=== PATIENT | female | born 1950 | race Caucasian/White ===

== ENCOUNTER 2017-05-23 19:52 | Inpatient (IN) | payer MEDICARE ==
[~2017-05-23] VITALS: Ht 157.5 cm; Wt 89.8 kg
[2017-05-23] MEDS ORDERED: ATOR80TA PO (20:01)
[2017-05-23] MEDS ORDERED: MIRA50TA PO (20:01)
[2017-05-23] MEDS ORDERED: ARIP10TA9 PO (20:01)
[2017-05-23] MEDS ORDERED: LEVO88TA5 PO (20:01)
[2017-05-23] MEDS ORDERED: MAGN400O6 PO (20:01)
[2017-05-23] MEDS ORDERED: MAGN30OR PO (20:01)
[2017-05-23] MEDS ORDERED: EZET10TA13 PO (20:01)
[2017-05-23] MEDS ORDERED: IBUP-1955 PO (20:01)
[2017-05-23] MEDS ORDERED: TRAZ-144 PO (20:01)
[2017-05-23] MEDS ORDERED: MAG HYDROX/AL HYDROX/SIMETH 30 ML LIQUID UDC PO PRN (21:15)
[2017-05-23] MEDS ORDERED: ZOLPIDEM 5 MG TABLET PO PRN (21:15)
[2017-05-23 22:36] VITALS: BP 138/91
[2017-05-23] MEDS ORDERED: ZOLPIDEM 5 MG TABLET ONE (23:02)
[2017-05-24 00:36] LABS: *BILIRUBIN,URIN NEGATIVE (NEGATIVE); *BLOOD, URINE NEGATIVE (NEGATIVE); *CLARITY,URINE CLEAR (CLEAR); *COLOR,URINE YELLOW (YELLOW); *KETONES,URINE NEGATIVE (NEGATIVE); *PROTEIN,URINE NEGATIVE (NEGATIVE); *UROBILINOGEN,URINE 0.2 E.U./dl (NORMAL); LEUKOCYTE ESTERASE ,URINE NEGATIVE (NEGATIVE); NITRITE, URINE NEGATIVE (NEGATIVE); UGLUCOSE NEGATIVE (NEGATIVE)
[2017-05-24 01:06] LABS: RBC,URINE 0-3 /HPF (0-3)
[2017-05-24 01:07] LABS: BACTERIA,URINE FEW /HPF (NONE SEEN); SQUAMOUS EPITHELIAL CELL,UR MODERATE /HPF (NONE SEEN); WBC,URINE 0-3 /HPF (0-3)
[2017-05-24 01:13] VITALS: BP 138/91
[2017-05-24 07:30] VITALS: BP 136/82
[2017-05-24] MEDS ORDERED: INFLUENZA VACCINE 2017-2018 0.5 ML DISP.SYRIN IM ONE (10:00)
[2017-05-24 16:00] VITALS: BP 132/74
[2017-05-24] MEDS: ARIPIPRAZOLE 5 MG TABLET PO SCH (16:54)
[2017-05-24] MEDS: MAGNESIUM HYDROXIDE 30 ML LIQUID UDC PO PRN (16:54)
[2017-05-24] MEDS: IBUPROFEN 600 MG TABLET PO PRN (17:33)
[2017-05-24] MEDS: ATORVASTATIN 40 MG TABLET PO SCH (20:05)
[2017-05-24 20:15] VITALS: BP 116/74
[2017-05-24] MEDS ORDERED: Medication Not On Formulary EA (Atorvastatin Calcium (Lipitor) 80 MG) PO SCH (21:00)
[2017-05-24] MEDS: TRAZODONE 100 MG TABLET PO PRN (22:36)
[2017-05-25 07:24] LABS: BASOPHILS % (AUTO) 0.3 % (0.0-2.0); EOSINOPHILS # (AUTO) 0.2 K/uL (0.0-0.7); EOSINOPHILS % (AUTO) 1.8 % (0.0-7.0); HEMATOCRIT 44.3 % (31.2-41.9); HEMOGLOBIN 15.3 g/dL (10.9-14.3); LYMPHOCYTES # (AUTO) 3.8 K/uL (20.0-40.0); LYMPHOCYTES % (AUTO) 41.1 % (20.5-51.5); MEAN CORPUSCULAR HEMOGLOBIN 28.5 uug (24.7-32.8); MEAN CORPUSCULAR HGB CONC 35 g/dL (32.3-35.6); MEAN CORPUSCULAR VOLUME 82.6 fL (75.5-95.3); MONOCYTES # (AUTO) 0.6 K/uL (2.0-10.0); MONOCYTES % (AUTO) 6.6 % (0.0-11.0); NEUTROPHILS # (AUTO) 4.7 K/uL (1.8-8.9); NEUTROPHILS % (AUTO) 50.2 % (38.5-71.5); PLATELET COUNT (AUTO) 278 K/uL (179-408); RED BLOOD CELL COUNT(AUTO) 5.37 MIL/uL (3.63-4.92); WHITE BLOOD COUNT (AUTO) 9.3 K/uL (3.8-11.8)
[2017-05-25 07:30] VITALS: BP 132/82
[2017-05-25 07:39] LABS: BILIRUBIN,TOTAL 0.5 mg/dL (0.2-1.0); MAGNESIUM 1.9 mg/dL (1.8-2.4); PHOSPHOROUS 3.4 mg/dL (2.5-4.9); POTASSIUM 3.7 mmol/L (3.5-5.1); TOTAL PROTEIN, SERUM 7.2 g/dL (6.4-8.2)
[2017-05-25 07:44] LABS: THYROID STIMULATING HORMONE 3.846 mIU/mL (0.358-3.740)
[2017-05-25] MEDS: LEVOTHYROXINE SODIUM 88 MCG TABLET PO SCH (07:52)
[2017-05-25] MEDS: ESCITALOPRAM OXALATE 10 MG TABLET PO SCH (08:13)
[2017-05-25] MEDS: ARIPIPRAZOLE 5 MG TABLET PO SCH ×2 (08:14→16:28)
[2017-05-25] MEDS ORDERED: Medication Not On Formulary EA (Mirabegron (Myrbetriq) 50 MG) PO SCH (09:00)
[2017-05-25] MEDS: MAGNESIUM HYDROXIDE 30 ML LIQUID UDC PO PRN (14:44)
[2017-05-25 15:45] VITALS: BP 140/87
[2017-05-25] MEDS: IBUPROFEN 600 MG TABLET PO PRN (16:27)
[2017-05-25 20:00] VITALS: BP 125/79
[2017-05-25] MEDS: TRAZODONE 100 MG TABLET PO PRN (21:23)
[2017-05-25] MEDS: ATORVASTATIN 40 MG TABLET PO SCH (21:23)
[2017-05-26] MEDS: LEVOTHYROXINE SODIUM 88 MCG TABLET PO SCH (06:33)
[2017-05-26 07:30] VITALS: BP 122/79
[2017-05-26 08:00] LABS: BASOPHILS % (AUTO) 0.3 % (0.0-2.0); EOSINOPHILS # (AUTO) 0.2 K/uL (0.0-0.7); EOSINOPHILS % (AUTO) 1.9 % (0.0-7.0); HEMATOCRIT 44.6 % (31.2-41.9); HEMOGLOBIN 15.1 g/dL (10.9-14.3); LYMPHOCYTES # (AUTO) 3.5 K/uL (20.0-40.0); LYMPHOCYTES % (AUTO) 42.7 % (20.5-51.5); MEAN CORPUSCULAR HEMOGLOBIN 28.3 uug (24.7-32.8); MEAN CORPUSCULAR HGB CONC 34 g/dL (32.3-35.6); MEAN CORPUSCULAR VOLUME 83.5 fL (75.5-95.3); MONOCYTES # (AUTO) 0.6 K/uL (2.0-10.0); MONOCYTES % (AUTO) 7.6 % (0.0-11.0); NEUTROPHILS # (AUTO) 3.9 K/uL (1.8-8.9); NEUTROPHILS % (AUTO) 47.5 % (38.5-71.5); PLATELET COUNT (AUTO) 287 K/uL (179-408); RED BLOOD CELL COUNT(AUTO) 5.34 MIL/uL (3.63-4.92); WHITE BLOOD COUNT (AUTO) 8.1 K/uL (3.8-11.8)
[2017-05-26] MEDS: ARIPIPRAZOLE 5 MG TABLET PO SCH ×2 (08:16→17:57)
[2017-05-26] MEDS: ESCITALOPRAM OXALATE 10 MG TABLET PO SCH (08:17)
[2017-05-26] MEDS: IBUPROFEN 600 MG TABLET PO PRN (15:22)
[2017-05-26 16:08] VITALS: BP 131/81
[2017-05-26] MEDS: ATORVASTATIN 40 MG TABLET PO SCH (20:07)
[2017-05-26] MEDS: DOCUSATE SODIUM 100 MG CAPSULE PO SCH (20:08)
[2017-05-26] MEDS: TRAZODONE 100 MG TABLET PO PRN (20:08)
[2017-05-26 20:09] VITALS: BP 123/79
[2017-05-27] MEDS: LEVOTHYROXINE SODIUM 88 MCG TABLET PO SCH (06:16)
[2017-05-27 07:30] VITALS: BP 110/72
[2017-05-27] MEDS: DOCUSATE SODIUM 100 MG CAPSULE PO SCH ×2 (09:10→20:27)
[2017-05-27] MEDS: ARIPIPRAZOLE 5 MG TABLET PO SCH ×2 (09:10→17:38)
[2017-05-27] MEDS: ESCITALOPRAM OXALATE 10 MG TABLET PO SCH (09:10)
[2017-05-27 15:00] VITALS: BP 137/82
[2017-05-27 20:00] VITALS: BP 133/80
[2017-05-27] MEDS: ATORVASTATIN 40 MG TABLET PO SCH (20:27)
[2017-05-27] MEDS: TRAZODONE 100 MG TABLET PO PRN (22:18)
[2017-05-28] MEDS: LEVOTHYROXINE SODIUM 88 MCG TABLET PO SCH (06:43)
[2017-05-28 07:30] VITALS: BP 138/85
[2017-05-28] MEDS: DOCUSATE SODIUM 100 MG CAPSULE PO SCH ×2 (08:32→20:59)
[2017-05-28] MEDS: ARIPIPRAZOLE 5 MG TABLET PO SCH ×2 (08:32→17:02)
[2017-05-28] MEDS: ESCITALOPRAM OXALATE 10 MG TABLET PO SCH (08:32)
[2017-05-28 16:00] VITALS: BP 115/70
[2017-05-28 20:43] VITALS: BP 124/78
[2017-05-28] MEDS: ATORVASTATIN 40 MG TABLET PO SCH (20:59)
[2017-05-28] MEDS ORDERED: ARIPIPRAZOLE 2 MG TABLET PO SCH (21:00)
[2017-05-29] MEDS: LEVOTHYROXINE SODIUM 88 MCG TABLET PO SCH (06:53)
[2017-05-29 07:30] VITALS: BP 143/81
[2017-05-29 07:58] LABS: BASOPHILS % (AUTO) 0.1 % (0.0-2.0); EOSINOPHILS # (AUTO) 0.1 K/uL (0.0-0.7); EOSINOPHILS % (AUTO) 1.4 % (0.0-7.0); HEMATOCRIT 48.3 % (37-47); HEMOGLOBIN 15.9 G/DL (12.0-16.0); LYMPHOCYTES % (AUTO) 33.1 % (20.5-51.5); MEAN CORPUSCULAR HEMOGLOBIN 27.6 UUG (27.0-31.0); MEAN CORPUSCULAR HGB CONC 33 g/dL (32.0-37.0); MEAN CORPUSCULAR VOLUME 83.6 FL (81.0-99.0); MONOCYTES # (AUTO) 0.6 K/UL (0.1-1.30); MONOCYTES % (AUTO) 6.3 % (0.0-11.0); NEUTROPHILS # (AUTO) 5.5 K/UL (1.8-8.9); NEUTROPHILS % (AUTO) 59.1 % (38.5-71.5); PLATELET COUNT (AUTO) 282 K/UL (150-450); RED BLOOD CELL COUNT(AUTO) 5.78 MIL/UL (4.2-5.4); WHITE BLOOD COUNT (AUTO) 9.2 K/UL (4.0-11.2)
[2017-05-29 08:40] LABS: BILIRUBIN,TOTAL 0.5 mg/dL (0.2-1.0); CREATININE 0.9 mg/dL (0.6-1.3); MAGNESIUM 2.1 mg/dL (1.8-2.4); PHOSPHOROUS 3.8 mg/dL (2.5-4.9); POTASSIUM 3.7 mmol/L (3.5-5.1); TOTAL PROTEIN, SERUM 7.3 g/dL (6.4-8.2)
[2017-05-29] MEDS ORDERED: ARIPIPRAZOLE 5 MG TABLET PO SCH ×2 (09:00→21:00)
[2017-05-29] MEDS: DOCUSATE SODIUM 100 MG CAPSULE PO SCH ×2 (09:02→20:23)
[2017-05-29] MEDS: LORAZEPAM 0.5 MG TABLET PO PRN (09:02)
[2017-05-29] MEDS: ESCITALOPRAM OXALATE 10 MG TABLET PO SCH (09:02)
[2017-05-29] MEDS: ARIPIPRAZOLE 10 MG TABLET PO SCH (09:03)
[2017-05-29 17:09] VITALS: BP 114/76
[2017-05-29 20:00] VITALS: BP 127/76
[2017-05-29] MEDS: ATORVASTATIN 40 MG TABLET PO SCH (20:25)
[2017-05-30] MEDS: LEVOTHYROXINE SODIUM 88 MCG TABLET PO SCH (06:32)
[2017-05-30 07:38] VITALS: BP 141/87
[2017-05-30] MEDS: ESCITALOPRAM OXALATE 10 MG TABLET PO SCH (08:17)
[2017-05-30] MEDS: ARIPIPRAZOLE 10 MG TABLET PO SCH (08:17)
[2017-05-30] MEDS: DOCUSATE SODIUM 100 MG CAPSULE PO SCH ×2 (08:17→20:16)
[2017-05-30 16:04] VITALS: BP 151/89
[2017-05-30] MEDS: LORAZEPAM 0.5 MG TABLET PO PRN (16:28)
[2017-05-30] MEDS ORDERED: ARIPIPRAZOLE 10 MG TABLET PO SCH (17:00)
[2017-05-30 20:10] VITALS: BP 112/64
[2017-05-30] MEDS: ATORVASTATIN 40 MG TABLET PO SCH (20:17)
[2017-05-30] MEDS: ACETAMINOPHEN 325 MG TABLET PO PRN (22:50)
[2017-05-31] MEDS: LEVOTHYROXINE SODIUM 88 MCG TABLET PO SCH (06:42)
[2017-05-31 07:30] VITALS: BP 120/82
[2017-05-31] MEDS: ESCITALOPRAM OXALATE 10 MG TABLET PO SCH (09:07)
[2017-05-31] MEDS: ARIPIPRAZOLE 10 MG TABLET PO SCH ×2 (09:08→17:39)
[2017-05-31] MEDS: DOCUSATE SODIUM 100 MG CAPSULE PO SCH ×2 (09:08→20:21)
[2017-05-31 16:00] VITALS: BP 129/77
[2017-05-31 20:18] VITALS: BP 137/80
[2017-05-31] MEDS: ATORVASTATIN 40 MG TABLET PO SCH (20:20)
[2017-05-31] MEDS: ACETAMINOPHEN 325 MG TABLET PO PRN (22:14)
[2017-05-31] MEDS: TRAZODONE 100 MG TABLET PO PRN (22:14)
[2017-06-01] MEDS: LEVOTHYROXINE SODIUM 88 MCG TABLET PO SCH (06:20)
[2017-06-01 07:30] VITALS: BP 125/71
[2017-06-01] MEDS: DOCUSATE SODIUM 100 MG CAPSULE PO SCH ×2 (08:05→20:21)
[2017-06-01] MEDS: ESCITALOPRAM OXALATE 10 MG TABLET PO SCH (08:05)
[2017-06-01] MEDS: ARIPIPRAZOLE 10 MG TABLET PO SCH ×2 (08:06→16:50)
[2017-06-01] MEDS: GENTAMICIN SULFATE OPHT DROP 5 ML BOTTLE RIGHTEYE SCH ×3 (13:13→20:21)
[2017-06-01 15:13] VITALS: BP 109/70
[2017-06-01] MEDS: ATORVASTATIN 40 MG TABLET PO SCH (20:21)
[2017-06-02] MEDS: LEVOTHYROXINE SODIUM 88 MCG TABLET PO SCH (06:21)
[2017-06-02 07:30] VITALS: BP 136/97
[2017-06-02] MEDS: DOCUSATE SODIUM 100 MG CAPSULE PO SCH ×2 (08:20→20:58)
[2017-06-02] MEDS: ESCITALOPRAM OXALATE 10 MG TABLET PO SCH (08:20)
[2017-06-02] MEDS: GENTAMICIN SULFATE OPHT DROP 5 ML BOTTLE RIGHTEYE SCH ×4 (08:21→20:58)
[2017-06-02] MEDS: ARIPIPRAZOLE 10 MG TABLET PO SCH ×2 (08:24→16:24)
[2017-06-02] MEDS ORDERED: MAGNESIUM HYDROXIDE 30 ML LIQUID UDC PO ONE (14:15)
[2017-06-02 15:00] VITALS: BP 132/96
[2017-06-02] MEDS: CEPHALEXIN MONOHYDRATE 500 MG CAPSULE PO SCH ×2 (15:22→22:07)
[2017-06-02 20:11] VITALS: BP 134/70
[2017-06-02] MEDS: ATORVASTATIN 40 MG TABLET PO SCH (20:58)
[2017-06-03] MEDS: CEPHALEXIN MONOHYDRATE 500 MG CAPSULE PO SCH ×3 (06:12→22:34)
[2017-06-03] MEDS: LEVOTHYROXINE SODIUM 88 MCG TABLET PO SCH (06:12)
[2017-06-03] MEDS: ACETAMINOPHEN 325 MG TABLET PO PRN (06:25)
[2017-06-03 07:30] VITALS: BP 119/82
[2017-06-03 08:08] LABS: BILIRUBIN,TOTAL 0.6 mg/dL (0.2-1.0); CREATININE 0.9 mg/dL (0.6-1.3); MAGNESIUM 2.1 mg/dL (1.8-2.4); PHOSPHOROUS 3.6 mg/dL (2.5-4.9); POTASSIUM 3.6 mmol/L (3.5-5.1); TOTAL PROTEIN, SERUM 6.6 g/dL (6.4-8.2)
[2017-06-03 08:11] LABS: BASOPHILS % (AUTO) 0.1 % (0.0-2.0); EOSINOPHILS # (AUTO) 0.1 K/uL (0.0-0.7); EOSINOPHILS % (AUTO) 0.7 % (0.0-7.0); HEMATOCRIT 42.7 % (37-47); HEMOGLOBIN 14.2 G/DL (12.0-16.0); LYMPHOCYTES # (AUTO) 2.8 K/UL (0.8-4.8); MEAN CORPUSCULAR HEMOGLOBIN 27.9 UUG (27.0-31.0); MEAN CORPUSCULAR HGB CONC 33 g/dL (32.0-37.0); MEAN CORPUSCULAR VOLUME 83.6 FL (81.0-99.0); MONOCYTES % (AUTO) 8.1 % (0.0-11.0); NEUTROPHILS # (AUTO) 8.1 K/UL (1.8-8.9); NEUTROPHILS % (AUTO) 68.1 % (38.5-71.5); PLATELET COUNT (AUTO) 264 K/UL (150-450); RED BLOOD CELL COUNT(AUTO) 5.11 MIL/UL (4.2-5.4)
[2017-06-03] MEDS: ESCITALOPRAM OXALATE 10 MG TABLET PO SCH (08:42)
[2017-06-03] MEDS: DOCUSATE SODIUM 100 MG CAPSULE PO SCH ×2 (08:42→21:09)
[2017-06-03] MEDS: ARIPIPRAZOLE 10 MG TABLET PO SCH ×2 (08:43→16:34)
[2017-06-03] MEDS: GENTAMICIN SULFATE OPHT DROP 5 ML BOTTLE RIGHTEYE SCH ×4 (08:43→21:09)
[2017-06-03 15:00] VITALS: BP 122/85
[2017-06-03 20:04] VITALS: BP 146/92
[2017-06-03] MEDS: ATORVASTATIN 40 MG TABLET PO SCH (21:09)
[2017-06-04] MEDS: CEPHALEXIN MONOHYDRATE 500 MG CAPSULE PO SCH ×3 (06:54→21:43)
[2017-06-04] MEDS: LEVOTHYROXINE SODIUM 88 MCG TABLET PO SCH (06:54)
[2017-06-04 07:30] VITALS: BP 130/87
[2017-06-04] MEDS: DOCUSATE SODIUM 100 MG CAPSULE PO SCH ×2 (09:00→20:21)
[2017-06-04] MEDS: ARIPIPRAZOLE 10 MG TABLET PO SCH ×2 (09:00→16:52)
[2017-06-04] MEDS: ESCITALOPRAM OXALATE 10 MG TABLET PO SCH (09:00)
[2017-06-04] MEDS: GENTAMICIN SULFATE OPHT DROP 5 ML BOTTLE RIGHTEYE SCH (09:01)
[2017-06-04 15:16] VITALS: BP 145/81
[2017-06-04 20:11] VITALS: BP 120/78
[2017-06-04] MEDS: ATORVASTATIN 40 MG TABLET PO SCH (20:20)
[2017-06-05] MEDS: CEPHALEXIN MONOHYDRATE 500 MG CAPSULE PO SCH (06:27)
[2017-06-05] MEDS: LEVOTHYROXINE SODIUM 88 MCG TABLET PO SCH (06:28)
[2017-06-05 07:30] VITALS: BP 132/81
[2017-06-05] MEDS: DOCUSATE SODIUM 100 MG CAPSULE PO SCH (08:53)
[2017-06-05] MEDS: ESCITALOPRAM OXALATE 10 MG TABLET PO SCH (08:54)
[2017-06-05] MEDS: ARIPIPRAZOLE 10 MG TABLET PO SCH (08:54)
== END 2017-06-05 11:45 | DRG 885 ==
LOC: ER 19:55 → GPS 20:58
PROVIDERS: ADMIT Psychiatry & Neurology Psychiatry; ATTEND Internal Medicine
DX: F31.5 Bipolar disorder, current episode depressed, severe, with psychotic features (principal); E87.0 Hyperosmolality and hypernatremia; F03.91 Unspecified dementia, unspecified severity, with behavioral disturbance; D75.1 Secondary polycythemia; E88.09 Other disorders of plasma-protein metabolism, not elsewhere classified; E66.9 Obesity, unspecified; Z68.36 Body mass index [BMI] 36.0-36.9, adult; Z71.3 Dietary counseling and surveillance; E78.5 Hyperlipidemia, unspecified; Z90.49 Acquired absence of other specified parts of digestive tract; Z79.899 Other long term (current) drug therapy; Z86.73 Personal history of transient ischemic attack (TIA), and cerebral infarction without residual deficits; Z90.81 Acquired absence of spleen; K59.00 Constipation, unspecified; F43.10 Post-traumatic stress disorder, unspecified; I10 Essential (primary) hypertension; H01.003 Unspecified blepharitis right eye, unspecified eyelid; H00.012 Hordeolum externum right lower eyelid
CPT/HCPCS: 36415; 70450; 71010; 83735; 84100; 84443; 85025; 87086; 90686; 93005; A4663